=== PATIENT | male | born 1950 | race Caucasian/White ===

== ENCOUNTER 2018-01-07 10:33 | Day surgery (SDC) | payer MEDICARE ==
[~2018-01-07 10:33] MED LIST: Buffered Lidocaine 0.9% SYRIN* 5 ML/SYR SYRINGE INTRADERM ONE
[2018-01-07] MEDS ORDERED: Buffered Lidocaine 0.9% SYRIN* 5 ML/SYR SYRINGE ONE (10:34)
[2018-01-07] MEDS ORDERED: fentaNYL* 50 MCG/ML 2 ML VIAL (100 MCG VIAL) ONE ×2 (11:11→13:02)
[2018-01-07] MEDS ORDERED: Midazolam* 1 MG/ML 2 ML VIAL (2 MG) ONE (11:11)
[2018-01-07] MEDS ORDERED: Lidocaine 2% EPI 1:200000 MPF*10-20 ML VIAL ONE (12:31)
[2018-01-07] MEDS ORDERED: Oxymetazoline 0.05% NASAL SPR* 15 ML BTL ONE (12:31)
[2018-01-07] MEDS ORDERED: Gelatin ADSORBABLE (OPHTH)* OPHTH.FILM ONE (12:32)
[2018-01-07] MEDS ORDERED: Gelfoam 12-7 ADSORBABL SPONGE* 1 EA SPONGE ONE (12:32)
[2018-01-07] MEDS ORDERED: Propofol* 10 MG/ML 20 ML BTL IV PUSH ONE (13:28)
[2018-01-07] MEDS ORDERED: Succinylcholine* 20 MG/ML 10 ML VIAL ONE (13:28)
[2018-01-07] MEDS ORDERED: Dexamethasone IV* 4 MG/ML 1 ML (4 MG) ONE (13:28)
[2018-01-07] MEDS ORDERED: Ondansetron INJ* 2 MG/ML VIAL ONE (13:28)
[2018-01-07] MEDS ORDERED: Lidocaine 2% PF * 5 ML VIAL ONE (13:28)
[2018-01-07] MEDS ORDERED: Sevoflurane* 1 BTL ONE (13:28)
[2018-01-07] MEDS ORDERED: Triamcinolone Acetonide* 40 MG/ML 1 ML VIAL ONE (13:32)
[2018-01-07] MEDS ORDERED: EPHEDrine (Pressors)* 50 MG/ML VIAL ONE (13:32)
[2018-01-07] MEDS ORDERED: Metoclopramide IV* 5 MG/ML 2 ML VIAL IV PRN (13:34)
[2018-01-07] MEDS ORDERED: Ibuprofen TAB* 600 MG PO PRN (13:34)
[2018-01-07] MEDS ORDERED: oxyCODONE TAB* 5 MG TAB PO PRN (13:34)
[2018-01-07] MEDS ORDERED: Naloxone* 0.4 MG/ML 1 ML VIAL IV PRN (13:34)
[2018-01-07] MEDS ORDERED: Acetaminophen TAB* 325 MG PO PRN (13:34)
[2018-01-07] MEDS ORDERED: Acetaminophen TAB* 325 MG ONE (14:14)
[2018-01-07] MEDS ORDERED: hydrALAZINE IV* 20 MG/ML VIAL ONE (14:42)
[2018-01-07] MEDS ORDERED: Lisinopril TAB* 5 MG PO ONE (15:00)
[2018-01-07] MEDS ORDERED: hydrALAZINE IV* 20 MG/ML VIAL IV SLOW PU ONE (15:00)
[2018-01-07 16:03] VITALS: BP 165/79
--- NOTE | 2018-01-08 05:14 | OP ---
DATE OF OPERATION: 01/07/18 - [facility] DATE OF : 46 SURGEON: Rc Negron MD PRE-OP DIAGNOSIS: Chronic nasal polys, chronic sinusitis. POST-OP DIAGNOSIS: Chronic nasal polys, chronic sinusitis. OPERATIVE PROCEDURE: Bilateral video endoscopic maxillary antrostomy, removal of nasal polyps, anterior posterior ethmoidectomy with removal of nasal polyps and bilateral frontal duct dilatation with removal of nasofrontal polyps. BRIEF HISTORY: This is a 67-year-old gentleman with previous history of endoscopic sinus surgery complaining of about a 5-month history of persistent facial pressure, congestion, rhinorrhea. CT scan shows extensive nasal polyps. Endoscopy in the office showed extensive polyps. He had taken several courses of oral steroids, but unfortunately he was having a lot of side effects from the steroids. He elected for surgical resection of the polyps to be able to use topical nasal steroids and nasal steroid washes to improve his symptoms. DESCRIPTION OF PROCEDURE: The patient was taken to the operating room, general anesthetic was given, the patient was intubated. The nose was decongested with Afrin placed pledgets. A 0-degree telescope, 30-degree telescope, sinus balloon instruments and microshaver were utilized. The CT scans were available in the operating room. Initially we decongested the nose and subsequently infiltrated with 2% lidocaine and epinephrine, and the region of the lateral wall and middle turbinate, the right side was quite adherent. This allowed us to sort of release the middle turbinate, which was plastered to the lateral nasal wall. I then infiltrated the polyps. Initially, we removed the polys in the antrum with a curved microshaver and subsequently removed the ethmoidal polyps and coursing posteriorly towards the skull base and superiorly to the nasofrontal duct area. I subsequently put a balloon in and dilated the balloon to 12 bar pressure, several passes of 7 mm balloon. Next, once this was done, any additional polyps were removed. The area was packed with Gelfoam/Gelfilm, which was soaked with Floxin. On the right side, again similarly uncinate region was adherent to the middle turbinate and dividing it caused it to be quite floppy. With this in mind, I removed as much of the ethmoidal resection as possible going into the nasofrontal duct area. Again, the balloon was passed into the nasofrontal duct and then subsequently dilated to 12 bar pressure with a 7 mm balloon. We then made several passes. The ethmoidal area was packed with Gelfilm and Gelfoam. I subsequently used the curved microshaver to remove some polyps in the maxillary antrum, these were quite small at this point. The patient was then awakened, extubated and sent to the recovery room in stable condition. Instrument and sponge counts were correct. Blood loss minimal. [id number]/[facility] #: [id number] [facility]ITAL[facility]ristel
== END 2018-01-07 16:05 | disposition home or self-care (01) ==
LOC: OR 10:33
PROVIDERS: ATTEND Otolaryngology
DX: J32.8 Other chronic sinusitis (principal); J33.8 Other polyp of sinus; I10 Essential (primary) hypertension; Z87.891 Personal history of nicotine dependence; J30.2 Other seasonal allergic rhinitis
CPT/HCPCS: 88305; A9270-GY; J0330; J0360; J1100; J2250; J2405; J2704; J3010; J3301